=== PATIENT | male | born 1950 | race Asian ===

== ENCOUNTER 2018-02-20 15:18 | Emergency (ER) | payer OTHER ==
--- NOTE | 2018-02-20 16:12 | EDPHY ---
H & P Stated Complaint: abd distention /n/v hx ulcers Time Seen by Provider: 02/20/18 15:36 HPI/ROS: Chief Complaint: Abdominal pain HPI: 67-year-old male presenting with abdominal bloating nausea vomiting since this morning. Has a history of gastric ulcers or knee in the past and has had abdominal surgery for the same. He had similar symptoms 6 months ago when in [facility] without any treatment. Denies any abdominal pain. No fevers or chills. Did have a small bowel movement this morning. No chest pain or shortness of breath. ROS: 10 systems were reviewed and were negative except those elements noted in the HPI. PMH: Perforated duodenal ulcer Social History: No smoking, no alcohol, no recreational drug use Family History: non-contributory Physical Exam: Gen: Awake, Alert, No Distress HEENT: Nose: no rhinorrhea Eyes: PERRLA, EOMI Mouth: Moist mucosa Neck: Supple, no JVD Chest: nontender, lungs clear to auscultation Heart: S1, S2 normal, no murmur Abd: Soft, moderately distended, minimal tenderness, high-pitched hyperactive bowel sounds Back: no CVA tenderness, no midline tenderness Ext: no edema, non-tender Skin: no rash Neuro: CN II-XII intact, Sensation grossly intact, Strength 5/5 in bilateral upper and lower extremities - Personal History Current Tetanus Diphtheria and Acellular Pertussis (TDAP): Unsure - Medical/Surgical History Hx Asthma: No Hx Chronic Respiratory Disease: No Hx Diabetes: No Hx Cardiac Disease: No Hx Renal Disease: No Hx Cirrhosis: No Hx Alcoholism: No Hx HIV/AIDS: No Hx Splenectomy or Spleen Trauma: No Other PMH: ulcers/high cholesterol umbilical hernia - Social History Smoking Status: Former smoker Constitutional: Initial Vital Signs Temperature (C) 37.4 C 02/20/18 15:29 Heart Rate 80 02/20/18 15:29 Respiratory Rate 18 02/20/18 15:29 Blood Pressure 139/84 H 02/20/18 15:29 O2 Sat (%) 94 02/20/18 15:29 O2 Delivery Mode Room Air Allergies/Adverse Reactions: No Known Allergies Allergy (Unverified 02/20/18 15:28) Home Medications: Medication Instructions Recorded Meds From [facility] Has With Them 02/20/18 Medical Decision Making - Diagnostics Imaging Results: Imaging Impressions Abdomen/Pelvis CT 02/20/18 16:10 Impression: 1. Mild partial small bowel obstruction of the jejunum probably secondary to a left periumbilical hernia with a loop of small bowel within it. 2. Nonobstructive nephrolithiasis bilateral. Probable mildly complex exophytic renal cortical cyst superior pole of the right kidney. Renal ultrasound could be performed for further evaluation. 3. Other chronic findings as above. Results called and discussed with Himanshu Ames MD, 02/20/2018 at 16:35. Imaging: Discussed imaging studies w/ beer runner Radiologist ED Course/Re-evaluation: CT scan noted. On repeat examination I have been able to reduce the hernia. Patient tolerated this well. Does not have any more pain. He is p.o. Challenge. No nausea or vomiting. Will discharge him with follow up with General surgery, return for any concerns. - Data Points Laboratory Results: Laboratory Results 02/20/18 15:58 02/20/18 15:58 02/20/18 02/20/18 02/20/18 16:02 15:58 15:58 WBC 8.93 10^3/uL 10^3/uL (3.80-9.50) RBC 5.18 10^6/uL 10^6/uL (4.40-6.38) Hgb 14.5 g/dL g/dL (13.7-17.5) POC Hgb 15.3 gm/dL gm/dL (13.7-17.5) Hct 43.6 % % (40.0-51.0) POC Hct 45 % % (40-51) MCV 84.2 fL fL (81.5-99.8) MCH 28.0 pg pg (27.9-34.1) MCHC 33.3 g/dL g/dL (32.4-36.7) RDW 14.4 % % (11.5-15.2) Plt Count 199 10^3/uL 10^3/uL (150-400) MPV 10.9 fL fL (8.7-11.7) Neut % (Auto) 65.1 % % (39.3-74.2) Lymph % (Auto) 20.0 % % (15.0-45.0) [place] % (Auto) 11.5 % % (4.5-13.0) Eos % (Auto) 3.0 % % (0.6-7.6) Baso % (Auto) 0.2 % L % (0.3-1.7) Nucleat RBC Rel Count 0.0 % % (0.0-0.2) Absolute Neuts (auto) 5.80 10^3/uL 10^3/uL (1.70-6.50) Absolute Lymphs (auto) 1.79 10^3/uL 10^3/uL (1.00-3.00) Absolute Monos (auto) 1.03 10^3/uL H 10^3/uL (0.30-0.80) Absolute Eos (auto) 0.27 10^3/uL 10^3/uL (0.03-0.40) Absolute Basos (auto) 0.02 10^3/uL 10^3/uL (0.02-0.10) Absolute Nucleated RBC 0.00 10^3/uL 10^3/uL (0-0.01) Immature Gran % 0.2 % % (0.0-1.1) Immature Gran # 0.02 10^3/uL 10^3/uL (0.00-0.10) POC Sodium 145 mEq/L mEq/L (135-145) Sodium 142 mEq/L mEq/L (135-145) POC Potassium 3.3 mEq/L mEq/L (3.3-5.0) Potassium 3.6 mEq/L mEq/L (3.3-5.0) POC Chloride 104 mEq/L mEq/L (97-110) Chloride 106 mEq/L mEq/L (97-110) Carbon Dioxide 26 mEq/l mEq/l (22-31) Anion Gap 10 mEq/L mEq/L (8-16) POC BUN 19 mg/dL mg/dL (7-23) BUN 19 mg/dL mg/dL (7-23) Creatinine 1.5 mg/dL H mg/dL (0.7-1.3) POC Creatinine 1.6 mg/dL H mg/dL (0.7-1.3) Estimated GFR 46 Glucose 98 mg/dL mg/dL (70-100) POC Glucose 99 mg/dL mg/dL (70-100) Calcium 9.3 mg/dL mg/dL (8.5-10.4) Total Bilirubin 0.9 mg/dL mg/dL (0.1-1.4) AST 29 IU/L IU/L (17-59) ALT 36 IU/L IU/L (21-72) Alkaline Phosphatase 83 IU/L IU/L (38-126) Total Protein 7.4 g/dL g/dL (6.3-8.2) Albumin 4.1 g/dL g/dL (3.5-5.0) Point of Care Test Results: Chemistry 02/20/18 16:02 POC Sodium 145 mEq/L mEq/L (135-145) POC Potassium 3.3 mEq/L mEq/L (3.3-5.0) POC Chloride 104 mEq/L mEq/L (97-110) POC BUN 19 mg/dL mg/dL (7-23) POC Creatinine 1.6 mg/dL H mg/dL (0.7-1.3) POC Glucose 99 mg/dL mg/dL (70-100) ISTAT H&H 02/20/18 16:02 POC Hgb 15.3 gm/dL gm/dL (13.7-17.5) POC Hct 45 % % (40-51) Departure - Departure Disposition: Home, Routine, Self-Care Clinical Impression: Hernia Condition: Good Instructions: Umbilical Hernia (ED) Additional Instructions: Follow up with a general surgeon in 4-5 days for evaluation for possible hernia repair. Return to the emergency department for increasing abdominal pain, uncontrolled nausea vomiting, fevers, chills, or any other concerns. Referrals: Milton Harrell MD [Medical Doctor] - As per Instructions
[2018-02-20 16:23] LABS: PLATELET COUNT 199 10^3/uL (150-400)
[2018-02-20 18:08] VITALS: BP 153/81
== END 2018-02-20 18:08 | disposition home or self-care (01) ==
DX: K46.9 Unspecified abdominal hernia without obstruction or gangrene (principal); Z87.19 Personal history of other diseases of the digestive system
CPT/HCPCS: 82435-PO; 82565-PO; 82947-PO; 84132-PO; 84295-PO; 84520-PO; 85014-PO